=== PATIENT | male | born 1960 | race Caucasian/White ===

== ENCOUNTER 2024-04-03 14:56 | Inpatient (IN) ==
[2024-04-03] MEDS ORDERED: IOPAMIDOL 100 ML BOTTLE IV ONE (14:57)
[2024-04-03] MEDS: 0.9 % SODIUM CHLORIDE 2,260 ML IV ONE (15:39)
[2024-04-03 16:28] LABS: Basophils # (Auto) 0.03 K/mcL (0.00-0.30); Basophils % (Auto) 0.2 % (0.0-2.0); Eosinophils # (Auto) 0.07 K/mcL (0.00-0.70); Eosinophils % (Auto) 0.5 % (0.0-7.0); Hematocrit 47.8 % (40.1-51.0); Hemoglobin 16.5 g/dL (13.7-17.5); Lymphocytes # (Auto) 1.12 K/mcL (1.50-4.80); Lymphocytes % (Auto) 7.3 % (15.5-49.0); Mean Cell Volume 92.3 fL (80.0-100.0); Mean Corpuscular HGB Conc 34.5 g/dL (31.0-36.0); Mean Platelet Volume 10.5 fL (8.8-12.5); Monocytes # (Auto) 0.72 K/mcL (0.10-0.90); Monocytes % (Auto) 4.7 % (1.0-12.0); Platelet Count 158 K/mcL (140-440); RBC 5.18 M/mcL (4.63-6.08); Red Cell Distribution Width 11.7 % (11.5-14.5); WBC 15.3 K/mcL (4.5-11.0)
[2024-04-03] MEDS: PIPERACILLIN SODIUM/TAZOBACTAM 3.375 GM in DEXTROSE 5% IN WATER 50 ML IV ONE (16:31)
[2024-04-03 16:50] LABS: INR 1.1 (0.9-1.1)
[2024-04-03 16:56] LABS: proBNP 82.7 pg/mL (<125.0)
[2024-04-03 17:01] LABS: ALT/SGPT 35 U/L (<40); AST/SGOT 27 U/L (<40); Albumin 3.3 gm/dL (3.2-5.2); Albumin/Globulin Ratio 1.3 (1.0-2.3); Alkaline Phosphatase 70 U/L (39-117); Bilirubin,Total 0.9 mg/dL (0.1-1.0); Blood Urea Nitrogen 9 mg/dL (8-23); Calcium 8.6 mg/dL (8.6-10.4); Carbon Dioxide 23 mmol/L (22-30); Chloride 97 mmol/L (96-108); Globulin 2.5 gm/dL (2.2-3.7); Glomerular Filtration Rate 80; Glucose 155 mg/dL (70-105); Potassium 3.5 mmol/L (3.3-5.1); Sodium 133 mmol/L (133-145)
[2024-04-03] MEDS: VANCOMYCIN 1,500 MG in 0.9 % SODIUM CHLORIDE 500 ML IV ONE (17:03)
[2024-04-03] MEDS: ACETAMINOPHEN 325 MG TABLET PO ONE (17:09)
[2024-04-03] MEDS: MAGNESIUM OXIDE 400 MG TABLET PO ONE (17:36)
[2024-04-03 18:18] LABS: Appearance,Urine Clear (Clear); Bacteria,Urine 0 /hpf (0); Bilirubin,Urine Negative (Negative); Color,Urine Yellow; Glucose,Urine (UA) Negative (Negative); Ketones,Urine Negative (Negative); Leukocyte Esterase,Urine Negative /uL (Negative); Nitrate,Urine Negative (Negative); Protein,Urine Negative (Negative); Urine Blood Trace-intact ery/mcL (Negative); Urine RBC 1 /hpf (0-3); Urine Squamous Epithelial Cell 0 /hpf (0-4); Urine WBC 1 /hpf (0-4); Urobilinogen,Urine Normal
[2024-04-03] MEDS ORDERED: ONDANSETRON 4 MG/2 ML VIAL IV PRN (19:19)
[2024-04-03] MEDS: PIPERACILLIN SODIUM/TAZOBACTAM 3.375 GM VIAL IV ONE (19:50)
[2024-04-03] MEDS: 0.9 % SODIUM CHLORIDE 1,000 ML IV SCH ×2 (20:20→23:10)
[2024-04-03] MEDS: PIPERACILLIN SODIUM/TAZOBACTAM 3.375 GM in DEXTROSE 5% IN WATER 100 ML IV SCH (20:24)
[2024-04-03] MEDS: HYDROmorphone 0.5 MG/0.5 ML SYRINGE IV PRN (20:24)
[2024-04-03] MEDS: ACETAMINOPHEN 325 MG TABLET PO PRN (21:11)
[2024-04-03] MEDS ORDERED: PIPERACILLIN SODIUM/TAZOBACTAM 4.5 GM in DEXTROSE 5% IN WATER 100 ML IV SCH (22:00)
[2024-04-03] MEDS: VANCOMYCIN PER PHARMACY IV ONE (22:14)
[2024-04-03] MEDS: DEXTROSE 5%-LR 1,000 ML IV SCH (23:10)
[2024-04-04] MEDS: VANCOMYCIN 1,500 MG in 0.9 % SODIUM CHLORIDE 500 ML IV SCH (05:16)
[2024-04-04] MEDS: PIPERACILLIN SODIUM/TAZOBACTAM 4.5 GM in 0.9 % SODIUM CHLORIDE 100 ML IV SCH ×2 (05:16→15:40)
[2024-04-04] MEDS ORDERED: VANCOMYCIN PER PHARMACY IV SCH (06:45)
[2024-04-04] MEDS ORDERED: ePHEDrine 50 MG/5 ML SYRINGE (ANEST) IV ONE (06:57)
[2024-04-04] MEDS ORDERED: DEXAMETHASONE 10 MG/ML VIAL ONE (06:57)
[2024-04-04] MEDS ORDERED: SUCCINYLCHOLINE 200 MG/10 ML VIAL IV ONE (06:57)
[2024-04-04] MEDS ORDERED: ONDANSETRON 4 MG/2 ML VIAL ONE (06:57)
[2024-04-04] MEDS ORDERED: LIDOCAINE 2% PF 5 ML VIAL ONE (06:57)
[2024-04-04] MEDS ORDERED: METOCLOPRAMIDE 10 MG/2 ML VIAL ONE (06:57)
[2024-04-04] MEDS ORDERED: KETOROLAC 30 MG/ML VIAL ONE ×2 (06:57→08:29)
[2024-04-04] MEDS ORDERED: PHENYLephrine 1 MG/10 ML SYRINGE (ANEST) ONE (06:57)
[2024-04-04] MEDS ORDERED: GLYCOPYRROLATE 0.2 MG/ML VIAL IV ONE (06:57)
[2024-04-04] MEDS ORDERED: PROPOFOL 200 MG/20 ML VIAL IV ONE (06:58)
[2024-04-04] MEDS ORDERED: MIDAZOLAM 2 MG/2 ML VIAL ONE (06:58)
[2024-04-04] MEDS ORDERED: KETAMINE 50 MG/ML Syringe IV ONE (06:58)
[2024-04-04 06:59] LABS: Blood Urea Nitrogen 9 mg/dL (8-23); Calcium 8.4 mg/dL (8.6-10.4); Carbon Dioxide 24 mmol/L (22-30); Chloride 99 mmol/L (96-108); Glomerular Filtration Rate 80; Glucose 145 mg/dL (70-105); Potassium 3.6 mmol/L (3.3-5.1); Sodium 134 mmol/L (133-145)
[2024-04-04 07:00] LABS: Hematocrit 45.7 % (40.1-51.0); Mean Platelet Volume 11.4 fL (8.8-12.5); Platelet Count 174 K/mcL (140-440); RBC 4.97 M/mcL (4.63-6.08); Red Cell Distribution Width 11.9 % (11.5-14.5)
[2024-04-04] MEDS ORDERED: FAMOTIDINE/PF 20 MG/2 ML VIAL IV ONE (07:36)
[2024-04-04] MEDS ORDERED: HYDROmorphone 0.5 MG/0.5 ML SYRINGE ONE (07:36)
[2024-04-04] MEDS ORDERED: fentaNYL 100 MCG/2 ML VIAL ONE (07:45)
[2024-04-04] MEDS ORDERED: fentaNYL 100 MCG/2 ML VIAL IV PRN (08:15)
[2024-04-04] MEDS ORDERED: IPRATROPIUM/ALBUTEROL 3 ML AMPUL.NEB NEB PRN (08:15)
[2024-04-04] MEDS ORDERED: ONDANSETRON 4 MG/2 ML VIAL IV PRN (08:15)
[2024-04-04] MEDS ORDERED: NALOXONE HCL 0.4 MG/ML VIAL IV PRN (08:15)
[2024-04-04] MEDS: BACITRACIN TOPICAL OINT 15 GM TUBE TOPICAL ONE (08:25)
[2024-04-04] MEDS: LACTATED RINGERS 1,000 ML IV SCH (13:45)
[2024-04-04] MEDS: oxyCODONE IR 5 MG TABLET PO PRN (18:34)
[2024-04-04] MEDS: PREGABALIN 100 MG CAPSULE PO SCH (20:05)
[2024-04-05 05:41] LABS: Hematocrit 44.1 % (40.1-51.0); Hemoglobin 15.4 g/dL (13.7-17.5); Mean Cell Volume 91.7 fL (80.0-100.0); Mean Corpuscular HGB Conc 34.9 g/dL (31.0-36.0); Mean Platelet Volume 11.5 fL (8.8-12.5); Platelet Count 188 K/mcL (140-440); RBC 4.81 M/mcL (4.63-6.08); Red Cell Distribution Width 11.8 % (11.5-14.5); WBC 15.4 K/mcL (4.5-11.0)
[2024-04-05 06:12] LABS: Blood Urea Nitrogen 15 mg/dL (8-23); Calcium 8.3 mg/dL (8.6-10.4); Carbon Dioxide 20 mmol/L (22-30); Chloride 105 mmol/L (96-108); Glomerular Filtration Rate 90; Glucose 216 mg/dL (70-105); Potassium 4.1 mmol/L (3.3-5.1); Sodium 138 mmol/L (133-145)
[2024-04-05] MEDS: OMEPRAZOLE 20 MG CAPSULE PO SCH (09:09)
[2024-04-05] MEDS ORDERED: ALPHA LIPOIC ACID 200 MG PO PRN (14:15)
[2024-04-05] MEDS ORDERED: [UNRECOGNIZED DRUG - OTHER] SCH (14:15)
[2024-04-05] MEDS ORDERED: NALOXONE HCL 4 MG NASAL (PP) NS SCH (14:15)
[2024-04-05] MEDS ORDERED: NABUMETONE 750 MG TABLET PO PRN (14:15)
[2024-04-05] MEDS ORDERED: ACETAMINOPHEN 500 MG TABLET PO PRN (14:15)
[2024-04-05] MEDS ORDERED: DOCUSATE SODIUM 100 MG CAPSULE PO PRN (14:15)
[2024-04-05] MEDS ORDERED: NON FORMULARY MEDICATION 1 DOSE MISCELL (Sildenafil (Pulm.Hypertension) 20 mg tablet) PO SCH (14:15)
[2024-04-05] MEDS ORDERED: oxyCODONE/APAP 10/325MG TABLET PO PRN (14:15)
[2024-04-05] MEDS ORDERED: [UNRECOGNIZED DRUG - SUPPLY] SCH (14:15)
[2024-04-05] MEDS: MUPIROCIN OINT 2% 22GM NARES SCH (14:21)
[2024-04-05] MEDS ORDERED: POLYETHYLENE GLYCOL 3350 17 GM PACKET PO PRN (14:33)
[2024-04-05] MEDS ORDERED: LEMBOREXANT 5 MG PO PRN (14:34)
[2024-04-05] MEDS: MELATONIN 3 MG TABLET PO PRN (20:06)
[2024-04-05] MEDS: CYCLOBENZAPRINE 10 MG TABLET PO PRN (20:17)
[2024-04-05] MEDS: 0.9 % SODIUM CHLORIDE 1,000 ML IV SCH (23:39)
[2024-04-06] MEDS: ACETAMINOPHEN 650 MG/65 ML BAG IV PRN (01:03)
[2024-04-06 07:01] LABS: Hematocrit 45.2 % (40.1-51.0); Hemoglobin 14.9 g/dL (13.7-17.5); Mean Cell Volume 87.4 fL (80.0-100.0); Mean Platelet Volume 10.4 fL (8.8-12.5); Platelet Count 272 K/mcL (140-440); RBC 5.17 M/mcL (4.63-6.08); WBC 8.5 K/mcL (4.5-11.0)
[2024-04-06] MEDS: MAGNESIUM OXIDE 400 MG TABLET PO SCH (08:38)
[2024-04-06] MEDS: HYDROCHLOROTHIAZIDE 12.5 MG CAPSULE PO SCH (08:38)
[2024-04-06] MEDS: VITAMIN D3 125 MCG TABLET PO SCH (08:39)
[2024-04-06] MEDS: LISINOPRIL 10 MG TABLET PO SCH (08:39)
[2024-04-06] MEDS: PHENTERMINE 37.5 MG PO SCH (12:34)
[2024-04-06] MEDS: LINEZOLID 600 MG TABLET PO SCH (12:34)
[2024-04-07 07:49] VITALS: TEMP 98.4; O2SAT 95
[2024-04-19] MEDS ORDERED: TESTOSTERONE CYPIONATE 200 MG/ML IM SCH (09:00)
== END 2024-04-07 08:04 | disposition home or self-care (01) | DRG 863 ==
LOC: ED 14:56 → MEDSUR 14:56 → OBSVTOIN 20:55 → MEDSUR 21:18
PROVIDERS: ADMIT Surgery Surgical Critical Care; ATTEND Surgery Surgical Critical Care
PROC: IDWOUND (2024-04-04 07:21)